=== PATIENT | male | born 1955 ===

== ENCOUNTER 2017-03-03 15:15 | Emergency (ER) | payer MEDICARE ==
[2017-03-03] MEDS ORDERED: TDAP Vaccine 0.5 mL Syr IM ONE (15:38)
[2017-03-03 15:42] VITALS: TEMP 99; BMI 24.3
--- NOTE | 2017-03-03 15:43 | ED PDOC ---
Arrival/HPI - General Historian: Patient - History of Present Illness Time/Duration: Prior to Arrival Symptom Onset: Sudden Context: Work - General Chief Complaint: Trauma Time Seen by Provider: 03/03/17 15:37 - History of Present Illness Narrative History of Present Illness (Text): 03/03/17 15:39 This 61 yo male with pmh htn, presents to this ED with his c/o right forearm crushed injury x [employer]. 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 Forearm was trapped between car and tire. Nearby people lifted car, so he was able to remove forearm. Uknown last tetanus. Patient is able to move fingers and wrist but with pain at forearm. Denies other complains. (Peace Kurtz) Past Medical History - Provider Review Nursing Documentation Reviewed: Yes - Tetanus Immunization Tetanus Immunization: Unknown - Cardiac Hx Hypertension: Yes Hx Pacemaker: No - Pulmonary Hx Tuberculosis: No - Neurological Hx Seizures: No - Hematological/Oncological Hx Blood Transfusions: No Hx Blood Transfusion Reaction: No - Musculoskeletal/Rheumatological Hx Musculoskeletal Disorders: No - Genitourinary/Gynecological Hx Sexually Transmitted Diseases: No - Psychiatric Hx Emotional Abuse: No Hx Physical Abuse: No Hx Substance Use: No - Anesthesia Hx Anesthesia Reactions: No Hx Malignant Hyperthermia: No - Suicidal Assessment Feels Threatened In Home Enviroment: No Family/Social History - Physician Review Nursing Documentation Reviewed: Yes Family/Social History: No Known Family HX Smoking Status: Unknown If Ever Smoked Hx Alcohol Use: No (ALCOHOL ABUSE IN THE PAST) Hx Substance Use: No Hx Substance Use Treatment: No Allergies/Home Meds Allergies/Adverse Reactions: Allergies No Known Allergies Allergy (Verified 03/03/17 15:25) Home Medications: Home Meds Medication Instructions Recorded Confirmed Esomeprazole Magnesium [Nexium] 1 tab PO DAILY 09/03/16 03/03/17 Lisinopril [Zestril] 1 tab PO DAILY 09/03/16 03/03/17 Rosuvastatin Calcium [Crestor] 1 tab PO DAILY 09/03/16 03/03/17 Review of Systems - Review of Systems Constitutional: Normal. absent: Fatigue, Weight Change, Fevers Eyes: Normal ENT: Normal Respiratory: Normal Cardiovascular: Normal Gastrointestinal: Normal Genitourinary Male: Normal Musculoskeletal: Other ((+) right forearm injury/pain) Skin: Normal Neurological: Normal Endocrine: Normal Hemo/Lymphatic: Normal Psychiatric: Normal Physical Exam Temperature: Afebrile Blood Pressure: Normal Pulse: Regular Respiratory Rate: Normal Appearance: Positive for: Well-Appearing, Non-Toxic, Comfortable Pain Distress: None Mental Status: Positive for: Alert and Oriented X 3 - Systems Exam Head: Present: Atraumatic, Normocephalic Pupils: Present: PERRL Extroacular Muscles: Present: EOMI Conjunctiva: Present: Normal Mouth: Present: Moist Mucous Membranes Neck: Present: Normal Range of Motion Upper Extremity: Present: NORMAL PULSES, Neurovascularly Intact, Capillary Refill < 2s, Other (ROM is decreased due to pain. (+) oblique depressed skin marking, linear on righ dorsal forearm, approx 20 cm in length). No: Cyanosis, Edema, Normal ROM (Patient is able to move all fingers, and able to flex and extend right wrist, but ROM is decreased due to pain. No compartment syndrome. the rest of forearm is soft, not swelling. No ecchymostic.), Erythema, Temperature Abnormalties, Deformity Neurological: Present: GCS=15, CN II-XII Intact Skin: Present: Warm, Dry, Normal Color. No: Rashes Psychiatric: Present: Alert, Oriented x 3 Medical Decision Making Re-evaluation Time: 17:18 Reassessment Condition: Re-examined, Improved ED Course and Treatment: 03/03/17 15:45 Patient prefers non-opiods pain medication 03/03/17 17:13 Patient came to ED c/o right forearm injury. X-rays did not shows fracture. Wound care , tetanus, toradol were ordered. Ortho Sugar Splint was ordered. Patient was recommended to see Orthopedist since muscular injury may have occurred. Sling was placed. Patient was recommended to clean wound daily with soap and water with topical antibiotic. Augmentin was prescribed. Patent understand to return to emergency if pain worsen or infection develops (Peace Kurtz) I was available for consultation during PA evaluation. The chart was reviewed by me, and I agree with disposition. The documented history was done by the physician fuel cell designer. The documented physical exam was done by the physician fuel cell designer. The documented procedures were done by the physician fuel cell designer. ( Willy Aldana) - RAD Interpretation Narrative RAD Interpretations (Text): 03/03/17 17:24 Forearm x-rays: No fx. (Peace Kurtz) Radiology Orders: 03/03/17 15:37 FOREARM RIGHT [RAD] Stat - Medication Orders Current Medication Orders: Discontinued Medications Amoxicillin/Clavulanate Potassium (Augmentin 875 Mg-125 Mg Tab) 1 tab PO STAT STA PRN Reason: Protocol Stop: 03/03/17 17:14 Ketorolac Tromethamine (Toradol) 15 mg IM STAT STA Stop: 03/03/17 15:39 Last Admin: 03/03/17 17:05 Dose: 15 mg Tetanus/Reduced Diphtheria/Acell Pertussis (Boostrix Vaccine Inj) 0.5 ml IM .ONCE ONE Stop: 03/03/17 15:39 Last Admin: 03/03/17 17:06 Dose: 0.5 ml - Procedure PROCEDURE NOTE (Text): 03/03/17 17:29 PROCEDURE: SPLINT APPLICATION Applied by English As A Second Language Teacher, supervised by Emergency Provider. Location: right forearm Procedure: The area of the splint was appropriately positioned. A 4 inch ortho glass, sugar tong was applied. Post-procedure: Good position. Neurovascular status remains intact. Patient tolerated the procedure well with no immediate complications. (Peace Kurtz) Disposition/Present on Arrival - Present on Arrival Any Indicators Present on Arrival: No History of DVT/PE: No History of Uncontrolled Diabetes: No Urinary Catheter: No History of Decub. Ulcer: No History Surgical Site Infection Following: None - Disposition Have Diagnosis and Disposition been Completed?: Yes Disposition Time: 17:18 Patient Plan: Discharge - Disposition Diagnosis: Forearm abrasion, Crushed injury, forearm Disposition: HOME/ ROUTINE Condition: GOOD Discharge Instructions (ExitCare): Abrasion (ED), Crush Injury (ED) Additional Instructions: Call private Orthopedist doctor for revaluation in 3-5 days. Clean wound daily with soap and water and apply topical Neosporin ointment. Take medication for pain as needed, and antibiotic. Return to emergency if wound becomes infected , or increasing pain. Prescriptions: Amoxicillin/Clavulanate [Augmentin 875 MG-125 MG] 1 tab PO BID #14 tab Famotidine [Pepcid] 40 mg PO DAILY #10 tablet Naproxen 500 mg PO BID PRN #14 tab PRN Reason: Pain, Severe (8-10) Referrals: Curtis Purdy MD [Primary Care Provider] - Follow up with primary Torsten Crocker MD [Staff Provider] - Follow up with primary Forms: [employer] [facility] Discharge (Urdu)
[2017-03-03 16:53] VITALS: BP 138/86; PULSE 65; RESP 18; O2SAT 96
[2017-03-03] MEDS ORDERED: Amoxicillin-Clav 875-125 mg Tab PO STA (17:13)
--- NOTE | 2017-03-03 17:34 | RAD ---
PROCEDURE: Radiographs of the Right Forearm HISTORY: forearm pain COMPARISON: None available. TECHNIQUE: Frontal and lateral views obtained. FINDINGS: BONES: No fracture or destructive lesion. JOINT SPACES: Unremarkable. OTHER FINDINGS: None. IMPRESSION: No acute findings related to/accounting for the clinical presentation. Concordant results with the preliminary interpretation rendered by the emergency department physician procedure.
== END 2017-03-03 17:36 | disposition home or self-care (01) ==
LOC: ED 15:15
DX: S50.811A Abrasion of right forearm, initial encounter (principal); W23.0XXA Caught, crushed, jammed, or pinched between moving objects, initial encounter; Y93.89 Activity, other specified; Y92.89 Other specified places as the place of occurrence of the external cause; Y99.8 Other external cause status; Z23 Encounter for immunization
CPT/HCPCS: 29125; 73090; 90471; 90715; 96372; 99285; J1885